=== PATIENT | male | born 1955 | race Hispanic/Latino ===

== ENCOUNTER 2022-07-14 14:53 | Observation (INO) | payer MEDICARE, SELFPAY ==
[2022-07-14] VITALS (8 sets, daily range): BP systolic 90–203; BP diastolic 52–86; PULSE 78–96; RESP 14–20; TEMP 36.4; O2SAT 98
--- NOTE | ~2022-07-14 | XR_ITS ---
EXAMINATION: XR chest 2V Exam Date/Time: 07/14/2022 15:15 BUSINESS ATTORNEY HISTORY: WEAKNESS, NAUSEA,HX HBP AND DIALYSIS PATIENT, POOR HISTORIAN Comparison: None. RESULT: Lines, tubes, and devices: None. Lungs and pleura: Minimal right posterior basal scar/atelectasis. Cardiomediastinal silhouette: Unremarkable. Other: No acute osseous or upper abdominal finding. IMPRESSION: No acute cardiopulmonary process. Reviewed, dictated and finalized at location K. NESS ATTORNEY
--- NOTE | ~2022-07-14 | CT_ITS ---
EXAMINATION: CT brain wo con DATE: 07/14/2022 19:40 INDICATION: AMS . TECHNIQUE: Computed tomography (CT) of the head was performed without intravenous contrast. The mA wa s adjusted according to patient size. Iterative reconstruction technique was employed. The dose-lengt h product was 605.33 mGy-cm. COMPARISON: None. FINDINGS: No acute intracranial hemorrhage or extra-axial fluid collection. No hydrocephalus, mass, or herniation. No acute ischemic infarct. Unremarkable dural venous sinus attenuation. No acute osseous abnormality. The aerated spaces are clear. Mild chronic white matter change. Atherosclerotic intracranial calcification. Bilateral lens replacem ents. IMPRESSION: No acute intracranial process. Reviewed, dictated and finalized at location K. ATELIC CONSULTANT
--- NOTE | 2022-07-14 14:54 | ECG_ITS ---
Measurements Intervals [place] Rate: 84 P: 33 TN: 130 QRS: 108 QRSD: 136 T: 9 QT: 401 QTc: 475 Interpretive Statements SINUS RHYTHM RIGHT AXIS DEVIATION RIGHT BUNDLE BRANCH BLOCK BASELINE ARTIFACT- I, II, AVR, AVL, AVF ABNORMAL ECG NO PREVIOUS ECG AVAILABLE FOR COMPARISON Electronically Signed On 07-14-2022 20:42:52 AUTOMATION CONTROLS ENGINEER by García Ayala D.O.
[2022-07-14 17:45] LABS: Basophils Absolute Auto 0.1 K/mm3 (0.0-0.1); Basophils Percent Auto 0.6 % (0.2-1.2); Eosinophils Absolute Auto 0.1 K/mm3 (0-0.3); Eosinophils Percent Auto 0.8 % (0-4.4); Hematocrit 37.1 % (42.0-52.0); Hemoglobin 12.2 g/dL (14.0-18.0); Immature Granulocyte Absolute 0.09 K/mm3 (0.00-0.031); Immature Granulocyte Percent A 0.8 % (0-0.5); Lymphocytes Absolute Auto 1.45 K/mm3 (0.9-3.2); Lymphocytes Percent Auto 13.4 % (18.3-44.2); Mean Corpuscular HGB Conc 32.9 g/dl (32-36); Mean Corpuscular Hemoglobin 30.3 pg (26-34); Mean Corpuscular Volume 92.3 fl (80-100); Mean Platelet Volume 9.7 fl (7.4-10.4); Monocytes Absolute Auto 1.1 K/mm3 (0.1-0.6); Monocytes Percent Auto 10.5 % (2.6-8.5); Neutrophils Percent Auto 73.9 % (45.5-73.1); Platelet Count Result 314 k/mm3 (150-375); Red Blood Count 4.02 M/mm3 (4.6-6.20); Red Cell Distribution Width 18.1 % (11.5-14.5); White Blood Count 10.9 K/mm3 (4.5-10.0)
[2022-07-14 17:49] LABS: Alanine Aminotransferase 18 U/L (6-50); Albumin Level 4.7 g/dL (3.5-5.1); Alkaline Phosphatase 81 U/L (38-126); Anion Gap 12 mmol/L (8-16); Aspartate Amino Transferase 22 U/L (17-59); Bilirubin,Total 0.7 mg/dL (0.2-1.3); Blood Urea Nitrogen 64 mg/dL (9-20); Calcium 8.9 mg/dL (8.4-10.2); Carbon Dioxide 30 mmol/L (22-30); Chloride 93 mmol/L (98-107); Estimated CRCL calculation 7 ml/min; Estimated Glomerular Filt Rate 6; Glucose 113 mg/dL (65-110); Potassium 5.1 mmol/L (3.4-5.0); Sodium 135 mmol/L (137-145)
[2022-07-14 18:54] LABS: Add Urine Microscopic? YES; Appearance Urine Clear (Clear); Bilirubin Urine Negative (Negative); Blood Urine Negative (Negative); Color Urine Yellow (Yellow); Glucose Urine UA 1+ mg/dL (Negative); Ketones Urine Trace mg/dL (Negative); Leukocyte Esterase Ur Negative LEU/UL (Negative); Nitrate Urine Negative (Negative); Protein Urine 3+ mg/dL (Negative); Specific Grav Ur 1.015 (1.001-1.035); Urobilinogen Urine 0.2 mg/dL (<2.0)
[2022-07-14 19:14] LABS: Bacteria Urine Trace /hpf; Squamous Epithelial Cell Urine Occasional /hpf (Few)
--- NOTE | 2022-07-14 19:27 | ED.GENADULT ---
HPI - General Adult General Chief complaint: Weakness Stated complaint: WEAKNESS, MISSED DIALYSIS TODAY Time Seen by Provider: 07/14/22 19:18 History of Present Illness HPI narrative: 67-year-old male presenting to the emergency department for evaluation of altered mental status. Patient states that Tuesday he was having some neck and back pain and did take some pain medication for this. Patient states that it did help with the pain but he felt tired and confused after taking the medication. Patient states that today he was still having symptoms of feeling tired and slept for most of the day. Patient did miss his hemodialysis. Patient does get hemodialysis on Tuesday and Tuesday. Dialysis is not scheduled again until Tuesday. Patient denies any chest pain or shortness of breath. Patient denies any coughs colds or fevers. Patient denies any nausea vomiting or diarrhea. Related Data Home Medications Medication Instructions Recorded Confirmed amlodipine 5 mg tablet 5 mg PO DAILY 07/15/22 07/15/22 atorvastatin 20 mg tablet 20 mg PO HS 07/15/22 07/15/22 carvedilol 12.5 mg tablet (Coreg) 12.5 mg PO BID 07/15/22 07/15/22 ergocalciferol (vitamin D2) 1,250 50,000 unit PO WEEKLY 07/15/22 07/15/22 mcg (50,000 unit) capsule sevelamer carbonate 800 mg tablet 1,600 mg PO TID 07/15/22 07/15/22 (Renvela) tramadol 50 mg tablet 50 mg 07/15/22 Allergies Allergy/AdvReac Type Severity Reaction Status Date / Time No Known Allergies Allergy Verified 07/14/22 20:50 Review of Systems Review of Systems: CONSTITUTIONAL: Denies fever, chills, or sweats. EYES: Denies visual changes, redness, or discharge. ENT: Denies rhinorrhea, congestion, sore throat, or otalgia. CARDIOVASCULAR: Denies chest pain, palpitations, or edema. RESPIRATORY: Denies cough or dyspnea. GASTROINTESTINAL: Denies abdominal pain, nausea, vomiting, or diarrhea. GENITOURINARY: Denies dysuria or hematuria. SKIN: Denies rash or itching. MUSCULOSKELETAL: See HPI NEUROLOGIC: See HPI Exam Narrative: APPEARANCE: Well appearing, no pain, no distress, well-nourished. HEAD: normocephalic, atraumatic. EYES: PERRLA/EOMI, conjunctivae clear. NOSE: Normal no drainage EARS:TMS clear with good light reflex. THROAT: Pharynx clear, no exudate. NECK: Supple. No adenopathy, no masses. RESPIRATORY: Airway patent, respirations nonlabored. Clear to auscultation bilaterally, no rales, rhonchi, wheezing. CARDIOVASCULAR: Regular rate and rhythm without murmurs rubs or gallops. ABDOMINAL: Soft, nontender, nondistended, normal bowel sounds MUSCULOSKELETAL: Moves all extremities. Strength/ROM intact, No edema, No calf tenderness. NEURO: Alert. Cranial nerves II through XII intact. Grossly intact SKIN: Warm, dry. Normal Color Course Course Emergency Course: Patient presents to the emergency department complaining of increased confusion. During my examination patient did have some confusion regarding the correct day of the week. Patient was afebrile with a minor leukocytosis of 10.9. Patient is on hemodialysis and his baseline kidney function is unknown. Patient did have a creatinine 8.8 and a BUN of 64. Patient was mildly hyperkalemic at 5.1. Patient was treated with a 500 mL normal saline bolus bicarb and Lokelma. Patient does still produce urine and UA shows no evidence of urinary tract infection. Patient's drug screen was negative. Patient was also negative for influenza RSV and for COVID. CT head scan showed no acute intracranial abnormality. No specific etiology to explain the patient's altered mental status was notified. Patient may have some metabolic encephalopathy due to uremic cephalopathy. Other etiologies on the differential diagnoses do include infectious or adverse drug reaction. Patient was discussed with the hospitalist and with nephrology. Nephrology will see the patient as consult. While being boarded in the emergency department and patient had an episode of
--- NOTE | 2022-07-14 20:16 | PC.NURSE ---
When this RN asked pt what brought him into the ER pt c/o neck and lower back pain that has been going on for a long time . After asking pt what changed to make him come into the ER pt states My neighbor says I'm not acting right . Pt states he has been staying with his neighbor while he's getting work done on his house. He goes to dialysis Mondays, Wednesdays, and Fridays but missed his treatment today because I wasn't feeling good . He is alert to self, year, month, and place, but is slow to respond and seems forgetful.
[2022-07-14 20:21] LABS: Amphetamine Screen Urine Negative (Negative); Barbiturate Screen Urine Negative (Negative); Benzodiazepines Screen Urine Negative (Negative); Cannabinoid Screen Urine Negative (Negative); Cocaine Screen Urine Negative (Negative); Methadone Screen Urine Negative (Negative); Opiate Screen Urine Negative (Negative); Phencyclidine Screen Urine Negative (Negative)
[2022-07-14 20:24] LABS: Influenza A QL RT-PCR Negative (Negative); Influenza B QL RT-PCR Negative (Negative); RSV RNA, RT-PCR Negative (Negative); SARS-CoV-2 RNA PCR Negative
[2022-07-14] MEDS: SODIUM ZIRCONIUM CYCLOSILICATE 10 GM POWD.PACK PO (20:50)
[2022-07-14] MEDS: SODIUM BICARBONATE 8.4% 50 MEQ/50 ML SYRINGE IV PUSH (20:55)
[2022-07-14] MEDS: SODIUM CHLORIDE 0.9% IV 250 ML BAG 500 ML IVPB (21:00)
--- NOTE | 2022-07-14 21:42 | PC.NURSE ---
Dr. Thompson notified of positive orthostatic vital signs. Clyde sandwich given to pt.
[2022-07-14] MEDS: hydrALAZINE HCL 20 MG/ML VIAL 10 MG IV PUSH (21:50)
--- NOTE | 2022-07-14 21:54 | PM.IMHP ---
H&P: HPI History of Present Illness Date/Time: 07/14/22 21:54 Chief Complaint: Altered mental status Narrative: This is a 67-year-old male past medical history significant for end-stage renal disease on hemodialysis, patient presents to the emergency room due to altered mental status patient states that he was not acting right his neighbor called 911 patient was brought to the emergency room for evaluation. Patient can not really give much of history is circumstantial at 1 point his states that his at [facility]. However could really detail the events that led him to be in the hospital denies any pain. Preliminary workup has been essentially nonrevealing. A chest x-ray was reported as: IMPRESSION: No acute cardiopulmonary process. A CT of the head was reported as: FINDINGS: No acute intracranial hemorrhage or extra-axial fluid collection. No hydrocephalus, mass, or herniation. No acute ischemic infarct. Unremarkable dural venous sinus attenuation. No acute osseous abnormality. The? aerated spaces are clear. Mild chronic white matter change. Atherosclerotic intracranial calcification. Bilateral lens replacements. IMPRESSION:? No acute intracranial process. Review of Systems Review of Systems: ROS unobtainable: Yes unobtainable due to mental status Meds Home Medications and Allergies Home Medications Medication Instructions Recorded Confirmed Type amlodipine 5 mg tablet 5 mg PO DAILY 07/15/22 07/15/22 History atorvastatin 20 mg tablet 20 mg PO HS 07/15/22 07/15/22 History carvedilol 12.5 mg tablet (Coreg) 12.5 mg PO BID 07/15/22 07/15/22 History ergocalciferol (vitamin D2) 1,250 50,000 unit PO WEEKLY 07/15/22 07/15/22 History mcg (50,000 unit) capsule sevelamer carbonate 800 mg tablet 1,600 mg PO TID 07/15/22 07/15/22 History (Renvela) tramadol 50 mg tablet 50 mg 07/15/22 History Allergies Allergy/AdvReac Type Severity Reaction Status Date / Time No Known Allergies Allergy Verified 07/14/22 20:50 Vital Signs Vital Signs - 24 hr 07/14/22 15:00 07/14/22 20:27 07/14/22 21:34 Temperature 97.6 F Pulse Rate 81 78 82 Respiratory Rate 16 20 Blood Pressure 175/86 H 177/75 H 203/80 H Pulse Oximetry 98 98 07/14/22 21:36 07/14/22 21:37 Temperature Pulse Rate 83 88 Respiratory Rate Blood Pressure 179/77 H 164/66 H Pulse Oximetry Exam Narrative: Patient is laying in a stretcher Const: General: comfortable, no acute distress, well developed, alert, awake and average body habitus Nutritional Appearance: average body habitus Orientation/consciousness: oriented to person HENMT: Head: normal to inspection, normocephalic and atraumatic Ears: hearing grossly normal bilaterally Face/Nose/Sinus: normal facial exam Face and sinus: normal facial exam Eyes: General: appearance normal, both eyes and all related structures Pupils: Equal, round and reactive pupils present EOM: EOMs intact bilaterally Neck: Neck: full ROM, no lymphadenopathy and no JVD Thyroid: thyroid normal Lymphatic: no lymphadenopathy noted Resp: Effort & Inspection: normal respiratory effort and able to speak in complete sentences Auscultation: clear to auscultation bilaterally Cardio: Jugular venous distension: no JVD Rate: regular rate Rhythm: regular rhythm Heart sounds: S1 normal heart sound present and S2 normal heart sound present GI: GI Palp: Yes Soft to palpation and Yes No hepatosplenomegaly present : General: Yes deferred Skin: Rashes: no rashes Wounds: no wounds Neuro: General: oriented to person and CN's II-XI intact bilaterally Cranial nerves: Yes CN's II-XII intact bilaterally and Yes Equal, round and reactive pupils present Cognition (Neuro): abnormal cognition (Confusion) Speech: normal speech Gait exam (Neuro): Unable to assess gait Motor exam (neuro): 5/5 motor strength present throughout Extrem: General: normal to inspection, full ROM, no joint enlargement and n
--- NOTE | 2022-07-14 21:55 | PC.NURSE ---
Called pt's neighbor listed in contacts to let them know pt is being admitted to the hospital. No questions or concerns at this time.
--- NOTE | 2022-07-14 23:33 | PC.NURSE ---
Hospitalist paged at this time d/t change in blood pressure
[2022-07-14] MEDS: SODIUM CHLORIDE 0.9% IV 250 ML 999 ML IV CONT (23:51)
[2022-07-15] VITALS (38 sets, daily range): BP systolic 104–195; BP diastolic 55–90; PULSE 65–93; RESP 12–21; TEMP 36–37; O2SAT 95–100; BMI 26.4
--- NOTE | 2022-07-15 00:41 | PC.NURSE ---
Entered pt's room to administer 15mg midodrine. This RN attempted to wake pt up but he was not responsive to verbal or tactile stimuli. He woke up briefly with sternal rub. Dr. Thompson called to bedside. POC glucose was 125. Dr. Mares paged to come to bedside. Pt placed in trendelenberg and blood pressure increased 137/65. 2L nasal cannula placed. Saturation 100%. Attempted to wake pt up with smelling salts without response. Dr. Thompson placed nasal trumpet to left nare and pt woke up. Pt is alert and oriented x4. Speech is clear.
[2022-07-15 00:46] LABS: Glucose Point of Care 125 mg/dl (65-105)
--- NOTE | 2022-07-15 00:46 | ECG_ITS ---
Measurements Intervals [place] Rate: 85 P: 28 [place]: 141 QRS: 106 QRSD: 149 T: 6 QT: 432 QTc: 514 Interpretive Statements SINUS RHYTHM VENTRICULAR PREMATURE COMPLEX POSSIBLE LEFT ATRIAL ENLARGEMENT RIGHT AXIS DEVIATION RIGHT BUNDLE BRANCH BLOCK ABNORMAL ECG COMPARED TO ECG 07/14/2022 17:27:44 NO SIGNIFICANT CHANGES Electronically Signed On 07-15-2022 8:00:03 LEAD SOFTWARE ARCHITECT by García Ayala D.O.
[2022-07-15 01:26] LABS: Alveolar/Arterial O2 Gradient 26.8 mmHg; Base Excess ABG 3.6 mEq/l (+/-2.0); Device ROOM AIR; Fractional Inspired Oxygen 21 %; HCO3 ABG 27.5 mEq/l (22.0-26.0); Modified Allen's Test Pass; Oxygen Content ABG 14.8 %vol (16.0-22.0); Oxyhemoglobin 93.5 % THb (90.0-100.0); PCO2 ABG 38.9 mmHg (35.0-45.0); PO2 ABG 76.3 mmHg (80.0-100.0); PO2 FiO2 Ratio Arterial Blood 3.63 %; Site Drawn RIGHT RADIAL; Total Hemoglobin 11.2 g/dL (12.0-18.0); pH ABG 7.467 (7.350-7.450)
[2022-07-15 05:21] LABS: Basophils Absolute Auto 0.1 K/mm3 (0.0-0.1); Basophils Percent Auto 0.6 % (0.2-1.2); Eosinophils Absolute Auto 0.2 K/mm3 (0-0.3); Eosinophils Percent Auto 2.7 % (0-4.4); Hematocrit 28.5 % (42.0-52.0); Hemoglobin 9.3 g/dL (14.0-18.0); Immature Granulocyte Absolute 0.04 K/mm3 (0.00-0.031); Immature Granulocyte Percent A 0.5 % (0-0.5); Lymphocytes Absolute Auto 1.75 K/mm3 (0.9-3.2); Lymphocytes Percent Auto 21.1 % (18.3-44.2); Mean Corpuscular HGB Conc 32.6 g/dl (32-36); Mean Corpuscular Hemoglobin 31.1 pg (26-34); Mean Corpuscular Volume 95.3 fl (80-100); Mean Platelet Volume 9.9 fl (7.4-10.4); Monocytes Absolute Auto 1.1 K/mm3 (0.1-0.6); Monocytes Percent Auto 13.6 % (2.6-8.5); Neutrophils Absolute Auto 5.1 K/mm3 (1.3-6.7); Neutrophils Percent Auto 61.5 % (45.5-73.1); Nucleated Red Blood Cells Perc 0.2 % (0.0-0.2); Platelet Count Result 255 k/mm3 (150-375); Red Blood Count 2.99 M/mm3 (4.6-6.20); Red Cell Distribution Width 18.1 % (11.5-14.5); White Blood Count 8.3 K/mm3 (4.5-10.0)
[2022-07-15 05:36] LABS: Albumin Level 3.5 g/dL (3.5-5.1); Anion Gap 11 mmol/L (8-16); Blood Urea Nitrogen 72 mg/dL (9-20); Calcium 7.6 mg/dL (8.4-10.2); Carbon Dioxide 30 mmol/L (22-30); Chloride 99 mmol/L (98-107); Estimated CRCL calculation 7 ml/min; Estimated Glomerular Filt Rate 6; Glucose 94 mg/dL (65-110); Phosphorus 7.1 mg/dL (2.5-4.5); Sodium 140 mmol/L (137-145)
[2022-07-15 07:23] LABS: Hepatitis B Surface Antigen Negative (Negative)
[2022-07-15] MEDS: carvediloL 12.5 MG TABLET PO ×2 (08:50→16:38)
[2022-07-15] MEDS: SEVELAMER CARBONATE 800 MG TABLET 1600 MG PO ×2 (08:51→16:36)
[2022-07-15] MEDS: HEPARIN SODIUM 5,000 UNITS/ML VIAL 5000 UNITS SUB-Q ×2 (08:51→21:26)
[2022-07-15] MEDS: amLODIPine BESYLATE 5 MG TABLET PO (08:51)
[2022-07-15 09:22] LABS: Hepatitis B Surface Anti Res Indeterminate
--- NOTE | 2022-07-15 10:54 | PC.NURSE ---
To dialysis per stretcher.
--- NOTE | 2022-07-15 13:14 | PM.CNNEP ---
Assessment and Plan Assessment and plan (1) End stage renal disease: Code(s): N18.6 - End stage renal disease Status: Chronic Assessment and Plan: missed HD yesterday so HD today next HD tomorrow or Tuesday but eventually transition back to M/W/F outpatient dialysis schedule follow electrolytes, volume status, and clearance (2) Altered mental status: Code(s): R41.82 - Altered mental status, unspecified Status: Acute Assessment and Plan: etiology not clear infection work-up in progress medication related??? patient admits to taking a lot of tramadol and baclofen for arthritis/muscle pain issues follow mentation (3) Hypertension: Code(s): I10 - Essential (primary) hypertension Status: Chronic Assessment and Plan: elevated at this time resume home medications follow trend of hemodynamics (4) Anemia: Code(s): D64.9 - Anemia, unspecified Status: Chronic Assessment and Plan: due to ESRD Epogen with HD follow trend of H/H Will continue to follow. History of Present Illness Reason for Consult Consult date: 07/15/22 Reason for consult: end stage renal disease Chief Complaint Chief complaint: Altered Mental Status,Hyperkalemia History of Present Illness Narrative: The patient is a 67-year-old male with a past medical history as outlined below who presented to [facility] Emergency room for further evaluation of altered mental status. The patient reports that earlier this week even having issues and problems with arthritis and muscle/back pain. He apparently had been taking tramadol as well as Baclofen for treatment of these issues which did help with his neck/back pain but he felt a bit confused in association with generalized weakness after taking these medications. Yesterday, he apparently felt so weak and tired that he slept for most of the day. He was due for outpatient dialysis yesterday but did not go because of his fatigue. His neighbor went to visit him yesterday and found him to be quite confused in comparison to his baseline and called 911. EMS subsequently brought the patient to [facility] Emergency room for further assessment. Workup and evaluation emergency room demonstrated the patient to be hemodynamically stable and in no acute distress. The patient's cells seems somewhat aware of the fact that he was confused and not his baseline and reiterated this to the ER physician. Subsequent workup and evaluation demonstrated labs consistent with his known history of end-stage renal disease and head CT did was unrevealing. There was some concern that perhaps his confusion may be an early sign of infection or some other pathological process being present so further testing was done and he was subsequently admitted to the hospital for further evaluation and therapy. It should be noted his potassium was mildly elevated on routine testing and he received medical management for treatment of this. Since his admission, he feels his mentation has improved but is still not back to baseline. He is currently receiving dialysis (he was seen on HD at around 12:45PM) at the time of my visit since he did not receive his outpatient treatment yesterday. Renal consultation was requested due to his end-stage renal disease. The patient normally dialyzes on a Tuesday, Tuesday, Tuesday dialysis schedule under the care of Dr. Toni Hugo at [facility]. the patient reports no issues or problems with his dialysis treatments and he is usually compliant with them in general. As already mentioned, he missed his dialysis treatment yesterday due to the fact that he was somewhat fatigued presumably from the a for mentioned medications he was taking. He is being dialyzed today and possibly dialysis either tomorrow or Tuesday and with eventual plan to transition him back to his Tuesday, Tuesday, Tuesday dialysis schedule. Curr
--- NOTE | 2022-07-15 18:10 | PM.IMPN ---
Progress Note: A&P Assessment and Plan (1) Altered mental state: Code(s): R41.82 - Altered mental status, unspecified Status: Acute Assessment and Plan: Place in observation CT of the head reviewed Sepsis workup in process 07/15/2021 interval history: chronic back pain had been taking tramadol and recently added baclofen box hinge and lock attacher suspect combination blood pain medication may have resulted and confusion, apparent baclofen was given by his neighbor, will continue tramadol PRN, patient was scheduled to have dialysis today he missed, will have dialysis tomorrow and further recommendation to follow. (2) End-stage renal disease on hemodialysis: Code(s): N18.6 - End stage renal disease; Z99.2 - Dependence on renal dialysis Status: Acute Assessment and Plan: Nephrology consult Continue dialysis Subjective Date/time seen: 07/15/22 18:10 Chief Complaint: Altered mental status Narrative: This is a 67-year-old male past medical history significant for end-stage renal disease on hemodialysis, patient presents to the emergency room due to altered mental status patient states that he was not acting right his neighbor called 911 patient was brought to the emergency room for evaluation.? Patient can not really give much of history is circumstantial at 1 point his states that his at [facility].? However could really detail the events that led him to be in the hospital denies any pain.? Preliminary workup has been essentially nonrevealing. 07/15/2021 interval history: chronic back pain had been taking tramadol and recently added baclofen box hinge and lock attacher suspect combination blood pain medication may have resulted and confusion, apparent baclofen was given by his neighbor, will continue tramadol PRN, patient was scheduled to have dialysis today he missed, will have dialysis tomorrow and further recommendation to follow. Review of Systems Review of Systems: As per HPI. ROS unobtainable: Yes unobtainable due to mental status Exam Narrative: Patient is comfortable, NAD HEENT: eyes are clear and none icteric LUNGS:CTA HEART: RR S1S2 ABD: BS+, Soft and nontender Lower extremities: no edema SKIN: nonjaundiced Neuro: grossly intact. Objective Data Vital Signs Vital Signs: Vital Signs - 24 hr 07/14/22 20:27 07/14/22 21:34 07/14/22 21:36 Temperature Pulse Rate 78 82 83 Respiratory Rate 20 Blood Pressure 177/75 H 203/80 H 179/77 H Pulse Oximetry 98 07/14/22 21:37 07/14/22 22:29 07/14/22 22:55 Temperature Pulse Rate 88 96 90 Respiratory Rate 20 20 Blood Pressure 164/66 H 162/75 H 150/67 H Pulse Oximetry 98 98 07/14/22 23:33 07/15/22 01:31 07/15/22 03:48 Temperature Pulse Rate 96 83 68 Respiratory Rate 14 21 H 14 Blood Pressure 90/52 L 167/84 H 105/55 L Pulse Oximetry 98 100 96 07/15/22 05:23 07/15/22 06:07 07/15/22 07:21 Temperature Pulse Rate 72 65 69 Respiratory Rate 14 12 12 Blood Pressure 104/57 L 106/56 L 109/58 L Pulse Oximetry 98 97 97 07/15/22 08:50 07/15/22 07:30 07/15/22 07:45 Temperature Pulse Rate 81 67 66 Respiratory Rate 12 12 Blood Pressure Pulse Oximetry 97 96 07/15/22 08:00 07/15/22 08:01 07/15/22 08:15 Temperature Pulse Rate 66 65 82 Respiratory Rate 14 12 18 Blood Pressure 123/60 Pulse Oximetry 95 97 99 07/15/22 08:30 07/15/22 08:45 07/15/22 09:00 Temperature Pulse Rate 76 77 78 Respiratory Rate 19 17 18 Blood Pressure Pulse Oximetry 07/15/22 09:01 07/15/22 09:15 07/15/22 09:30 Temperature Pulse Rate 82 78 74 Respiratory Rate 14 17 15 Blood Pressure 183/71 H Pulse Oximetry 07/15/22 09:45 07/15/22 10:54 07/15/22 11:07 Temperature 98.1 F Pulse Rate 72 81 75 Respiratory Rate 13 18 Blood Pressure 191/90 H 195/88 H Pulse Oximetry 07/15/22 11:20 07/15/22 11:40 07/15/22 12:00 Temperature Pulse Rate 74 73 71 Respiratory Rate Blood Pres
--- NOTE | 2022-07-15 18:22 | ADMGEN ---
This patient, John Jacobson, was admitted to [facility] Surg Room 324-02. Patient/family oriented to hospital policies and general routines including ID bracelet, bed and alarms, visiting hours, pain management, procedures, bathroom and other care routines, personal items, smoking policy, room service/diet, and visiting hours. Information on how to activate the Rapid Response Team has been discussed. Patient/Family are encouraged to report perceived risks to care and to ask questions if they do not understand what they are told or what they should do. Report from Alice
[2022-07-15] MEDS: ATORVASTATIN 20 MG TABLET PO (21:26)
[2022-07-15] MEDS: traMADol HCL (*CRX) 50 MG TABLET PO (21:32)
[2022-07-16] VITALS (11 sets, daily range): BP systolic 132–159; BP diastolic 64–77; PULSE 63–78; RESP 20; TEMP 36.5–36.6; O2SAT 95–98
[2022-07-16 07:23] LABS: Hematocrit 31.4 % (42.0-52.0); Hemoglobin 10.3 g/dL (14.0-18.0); Mean Corpuscular HGB Conc 32.8 g/dl (32-36); Mean Corpuscular Hemoglobin 30.5 pg (26-34); Mean Corpuscular Volume 92.9 fl (80-100); Mean Platelet Volume 9.6 fl (7.4-10.4); Platelet Count Result 265 k/mm3 (150-375); Red Blood Count 3.38 M/mm3 (4.6-6.20); Red Cell Distribution Width 18.5 % (11.5-14.5); White Blood Count 9.4 K/mm3 (4.5-10.0)
[2022-07-16 07:35] LABS: Albumin Level 3.9 g/dL (3.5-5.1); Anion Gap 7 mmol/L (8-16); Blood Urea Nitrogen 38 mg/dL (9-20); Calcium 8.5 mg/dL (8.4-10.2); Carbon Dioxide 31 mmol/L (22-30); Chloride 94 mmol/L (98-107); Estimated CRCL calculation 9 ml/min; Estimated Glomerular Filt Rate 8; Glucose 131 mg/dL (65-110); Magnesium 2.2 mg/dL (1.6-2.3); Phosphorus 5.4 mg/dL (2.5-4.5); Potassium 4.2 mmol/L (3.4-5.0); Sodium 132 mmol/L (137-145)
[2022-07-16] MEDS: carvediloL 12.5 MG TABLET PO ×2 (09:28→16:55)
[2022-07-16] MEDS: SEVELAMER CARBONATE 800 MG TABLET 1600 MG PO ×3 (09:28→16:55)
[2022-07-16] MEDS: amLODIPine BESYLATE 5 MG TABLET PO (09:28)
[2022-07-16] MEDS: HEPARIN SODIUM 5,000 UNITS/ML VIAL 5000 UNITS SUB-Q ×2 (09:28→20:39)
[2022-07-16] MEDS: traMADol HCL (*CRX) 50 MG TABLET PO ×2 (09:30→20:39)
--- NOTE | 2022-07-16 12:49 | PM.PNNEP ---
Progress Note: A&P Assessment and Plan (1) End stage renal disease: Code(s): N18.6 - End stage renal disease Status: Chronic Assessment and Plan: next HD tomorrow with eventually transition back to M/W/F outpatient dialysis schedule follow electrolytes, volume status, and clearance torri ironworker apprentice = Dr. Hugo outpatient dialysis center = [facility] (2) Altered mental status: Code(s): R41.82 - Altered mental status, unspecified Status: Acute Assessment and Plan: resolving (if not resolved) suspect baclofen to blame (long half life in ESRD patients) infection (blood/urine cultures) negative to date follow mentation (3) Hypertension: Code(s): I10 - Essential (primary) hypertension Status: Chronic Assessment and Plan: reasonable control at this time on home medications follow trend of hemodynamics (4) Anemia: Code(s): D64.9 - Anemia, unspecified Status: Chronic Assessment and Plan: due to ESRD Epogen with HD follow trend of H/H Will continue to follow. Subjective Date/time seen: 07/16/22 12:49 Overall, seems to be feeling much better; still has some pain/arthritis issues but seems controlled with tramadol; he feels his mentation is back to baseline with no further confusion. Exam Narrative: General: WD/WN male in NAD Heart: normal S1 and S2; no rub Lungs: clear to auscultation Abdomen: soft, nontender, nondistended, positive bowel sounds Extremities: no cyanosis or clubbing; no edema Skin: warm and dry Objective Data Vital Signs Vital Signs: Vital Signs Temp Pulse Resp BP Pulse Ox O2 Del Method 07/16/22 14:00 97.7 F 70 20 159/65 H 95 07/16/22 09:28 74 07/16/22 06:38 74 07/16/22 00:05 71 07/15/22 20:00 78 07/16/22 03:57 97.8 F 72 20 132/64 98 07/15/22 20:00 Room Air 07/15/22 19:59 97.1 F L 78 17 143/59 H 98 07/15/22 17:15 93 20 183/81 H 100 07/15/22 16:38 91 Intake/Output Intake/Output: Intake & Output 07/13/22 07/14/22 07/15/22/06/23 23:59 23:59 23:59 23:59 Intake Total 490 1100 Output Total 2000 0 Balance -1510 1100 Meds/Results Medications: Active Medications Generic Name Dose Route Start Last Admin Trade Name Freq PRN Reason Stop Dose Admin Amlodipine Besylate 5 mg 07/15/22 09:00 07/16/22 09:28 Amlodipine Besylate 5 Mg Tablet PO 5 mg DAILY CONRAD Administration Atorvastatin Calcium 20 mg 07/15/22 21:00 07/15/22 21:26 Atorvastatin 20 Mg Tablet PO 20 mg HS CONRAD Administration Carvedilol 12.5 mg 07/15/22 08:00 07/16/22 09:28 Carvedilol 12.5 Mg Tablet PO 12.5 mg BIDWM CONRAD Administration Ergocalciferol 50,000 units 07/15/22 09:00 Ergocalciferol 50,000 Units Capsule PO WEEKLY CONRAD Heparin Sodium (Porcine) 5,000 units 07/15/22 09:00 07/16/22 09:28 Heparin Sodium 5,000 Units/Ml Vial SUB-Q 5,000 units Q12HR CONRAD Administration Albumin Human 50 mls @ 999 mls/hr 07/15/22 07:12 Albutein IVPB 08/14/22 07:11 Q10M PRN HYPOTENSION Miscellaneous Information 0 each 07/16/22 00:01 Please Clarify When Next Vitamin D Capsule Is Due XX 08/15/22 00:00 CLARIFY CONRAD Sevelamer Carbonate 1,600 mg 07/15/22 08:00 07/16/22 13:20 Sevelamer Carbonate 800 Mg Tablet PO 1,600 mg TIDWM CONRAD Administration Tramadol HCl 50 mg 07/15/22 18:10 07/16/22 09:30 Tramadol Hcl (*Crx) 50 Mg Tablet PO 50 mg BID PRN Administration Pain Rated 4-6 Radiology Results: ITS Impressions Chest X-Ray 07/14/22 15:28 IMPRESSION: No acute cardiopulmonary process. Head CT 07/14/22 19:52 IMPRESSION: No acute intracranial process. Labs Labs: Laboratory Tests 07/16/22 07:10 07/16/22 07:10 Microbiology 07/14/22 18:27 Urine Clean Catch Urine Culture - Final 07/14/22 22:35 Blood
--- NOTE | 2022-07-16 12:49 | P.PNNP_ITS ---
Progress Note: A&P Assessment and Plan (1) End stage renal disease: Code(s): N18.6 - End stage renal disease Status: Chronic Assessment and Plan: * next HD tomorrow with eventually transition back to M/W/ outpatient dialysis schedule * follow electrolytes, volume status, and clearance * [facility] water supply technician = Dr. Hugo * outpatient dialysis center = [facility] (2) Altered mental status: Code(s): R41.82 - Altered mental status, unspecified Status: Acute Assessment and Plan: * resolving (if not resolved) * suspect baclofen to blame (long half life in ESRD patients) * infection (blood/urine cultures) negative to date * follow mentation (3) Hypertension: Code(s): I10 - Essential (primary) hypertension Status: Chronic Assessment and Plan: * reasonable control at this time * on home medications * follow trend of hemodynamics (4) Anemia: Code(s): D64.9 - Anemia, unspecified Status: Chronic Assessment and Plan: * due to ESRD * Epogen with HD * follow trend of H/H Will continue to follow. Subjective Date/time seen: 07/16/22 12:49 Overall, seems to be feeling much better; still has some pain/arthritis issues but seems controlled with tramadol; he feels his mentation is back to baseline with no further confusion. Exam Narrative: General: WD/WN male in NAD Heart: normal S1 and S2; no rub Lungs: clear to auscultation Abdomen: soft, nontender, nondistended, positive bowel sounds Extremities: no cyanosis or clubbing; no edema Skin: warm and dry Objective Data Vital Signs Vital Signs: Vital Signs Temp Pulse Resp BP Pulse Ox O2 Del Method 07/16/22 14:00 97.7 F 70 20 159/65 H 95 07/16/22 09:28 74 07/16/22 06:38 74 07/16/22 00:05 71 07/15/22 20:00 78 07/16/22 03:57 97.8 F 72 20 132/64 98 07/15/22 20:00 Room Air 07/15/22 19:59 97.1 F L 78 17 143/59 H 98 07/15/22 17:15 93 20 183/81 H 100 07/15/22 16:38 91 Intake/Output Intake/Output: Intake & Output 07/13/22 07/14/22 07/15/22 07/16/22 23:59 23:59 23:59 23:59 Intake Total 490 1100 Output Total 2000 0 Balance -1510 1100 Meds/Results Medications: Active Medications Generic Name Dose Route Start Last Admin Trade Name Venuq PRN Reason Stop Dose Admin Amlodipine Besylate 5 mg 07/15/22 09:00 07/16/22 09:28 Amlodipine Besylate 5 Mg Tablet PO 5 mg DAILY CONRAD Administration Atorvastatin Calcium 20 mg 07/15/22 21:00 07/15/22 21:26 Atorvastatin 20 Mg Tablet PO 20 mg HS CONRAD Administration Carvedilol 12.5 mg 07/15/22 08:00 07/16/22 09:28 Carvedilol 12.5 Mg Tablet PO 12.5 mg BIDWM CONRAD Administration Ergocalciferol 50,000 units 07/15/22 09:00 Ergocalciferol 50,000 Units Capsule PO WEEKLY CONRAD Heparin Sodium (Porcine) 5,000 units 07/15/22 09:00 07/16/22 09:28 Heparin Sodium 5,000 Units/Ml Vial SUB-Q 5,000 units Q12HR CONRAD Administration Albumin Human 50 mls @ 999 mls/hr 07/15/22 07:12
--- NOTE | 2022-07-16 17:32 | PM.IMPN ---
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 urine and blood culture no growth so far. (2) End-stage renal disease on hemodialysis: Code(s): N18.6 - End stage renal disease; Z99.2 - Dependence on renal dialysis Status: Acute Assessment and Plan: Nephrology consult Continue dialysis Subjective Date/time seen: 07/16/22 17:32 07/16/2021 interval history: chronic back pain had been taking tramadol and recently added baclofen juice weigher suspect combination blood pain medication may have resulted and confusion, apparent baclofen was given by his neighbor, will continue tramadol PRN, patient was scheduled to have dialysis on 07/14 he missed, Today patient had a dialysis is feeling much better back to normal, will monitor patient overnight will discharge the patient tomorrow morning. urine and blood culture no growth so far. Exam Narrative: Patient is comfortable, NAD HEENT: eyes are clear and none icteric LUNGS:CTA HEART: RR S1S2 ABD: BS+, Soft and nontender Lower extremities: no edema SKIN: nonjaundiced Neuro: grossly intact. Objective Data Vital Signs Vital Signs: Vital Signs - 24 hr 07/15/22 19:59 07/15/22 20:00 07/16/22 03:57 Temperature 97.1 F L 97.8 F Pulse Rate 78 72 Respiratory Rate 17 20 Blood Pressure 143/59 H 132/64 Pulse Oximetry 98 98 Oxygen Delivery Room Air 07/15/22 20:00 07/16/22 00:05 07/16/22 06:38 Temperature Pulse Rate 78 71 74 Respiratory Rate Blood Pressure Pulse Oximetry Oxygen Delivery 07/16/22 09:28 07/16/22 09:30 07/16/22 14:00 Temperature 97.7 F Pulse Rate 74 70 Respiratory Rate 20 Blood Pressure 159/65 H Pulse Oximetry 95 Oxygen Delivery Room Air 07/16/22 16:55 Temperature Pulse Rate 70 Respiratory Rate Blood Pressure Pulse Oximetry Oxygen Delivery Intake/Output Intake/Output: Intake & Output 07/13/22 07/14/22 07/15/22 07/16/22 23:59 23:59 23:59 23:59 Intake Total 490 1100 Output Total 2000 0 Balance -1510 1100 Meds/Results Medications: Active Medications Generic Name Dose Route Start Last Admin Trade Name Freq PRN Reason Stop Dose Admin Amlodipine Besylate 5 mg 07/15/22 09:00 07/16/22 09:28 Amlodipine Besylate 5 Mg Tablet PO 5 mg DAILY CONRAD Administration Atorvastatin Calcium 20 mg 07/15/22 21:00 07/15/22 21:26 Atorvastatin 20 Mg Tablet PO 20 mg HS CONRAD Administration Carvedilol 12.5 mg 07/15/22 08:00 07/16/22 16:55 Carvedilol 12.5 Mg Tablet PO 12.5 mg BIDWM CONRAD Administration Ergocalciferol 50,000 units 07/15/22 09:00 Ergocalciferol 50,000 Units Capsule PO WEEKLY CONRAD Heparin Sodium (Porcine) 5,000 units 07/15/22 09:00 07/16/22 09:28 Heparin Sodium 5,000 Units/Ml Vial SUB-Q 5,000 units Q12HR CONRAD Administration Albumin Human 50 mls @ 999 mls/hr 07/15/22 07:12 Albutein IVPB 08/14/22 07:11 Q10M PRN HYPOTENSION Miscellaneous Information 0 each 07/16/22 00:01 Please Clarify When Next Vitamin D Capsule Is Due XX 08/15/22 00:00 CLARIFY CONRAD Sevelamer Carbonate 1,600 mg 07/15/22 08:00 07/16/22 16:55 Sevelamer Carbonate 800 Mg Tablet PO 1,600 mg TIDWM CONRAD Administration Tramadol HCl 50 mg 07/15/22 18:10 07/16/22 09:30 Trama
[2022-07-16] MEDS: ATORVASTATIN 20 MG TABLET PO (20:40)
[2022-07-16 22:56] LABS: Glucose Point of Care 173 mg/dl (65-105)
[2022-07-17] VITALS (19 sets, daily range): BP systolic 97–196; BP diastolic 48–97; PULSE 59–69; RESP 16–20; TEMP 36–36.9; O2SAT 98
[2022-07-17 07:43] LABS: Hematocrit 34.1 % (42.0-52.0); Mean Corpuscular HGB Conc 32.3 g/dl (32-36); Mean Corpuscular Hemoglobin 31.1 pg (26-34); Mean Corpuscular Volume 96.3 fl (80-100); Mean Platelet Volume 9.9 fl (7.4-10.4); Platelet Count Result 267 k/mm3 (150-375); Red Blood Count 3.54 M/mm3 (4.6-6.20); Red Cell Distribution Width 18.4 % (11.5-14.5); White Blood Count 9.3 K/mm3 (4.5-10.0)
[2022-07-17 07:54] LABS: Anion Gap 10 mmol/L (8-16); Blood Urea Nitrogen 50 mg/dL (9-20); Calcium 8.1 mg/dL (8.4-10.2); Carbon Dioxide 29 mmol/L (22-30); Chloride 96 mmol/L (98-107); Estimated CRCL calculation 7 ml/min; Estimated Glomerular Filt Rate 6; Glucose 107 mg/dL (65-110); Magnesium 2.3 mg/dL (1.6-2.3); Phosphorus 6.5 mg/dL (2.5-4.5); Potassium 4.3 mmol/L (3.4-5.0); Sodium 135 mmol/L (137-145)
[2022-07-17] MEDS: SEVELAMER CARBONATE 800 MG TABLET 1600 MG PO (08:52)
[2022-07-17] MEDS: traMADol HCL (*CRX) 50 MG TABLET PO (08:52)
--- NOTE | 2022-07-17 09:10 | PC.NURSE ---
to dialysis via bed
--- NOTE | 2022-07-17 12:32 | P.PNNP_ITS ---
Progress Note: A&P Assessment and Plan (1) End stage renal disease: Code(s): N18.6 - End stage renal disease Status: Chronic Assessment and Plan: * HD today with transition back to M/W/F outpatient dialysis schedule next week * follow electrolytes, volume status, and clearance * primary trout farmer = Dr. Hugo * outpatient dialysis center = [facility] (2) Altered mental status: Code(s): R41.82 - Altered mental status, unspecified Status: Acute Assessment and Plan: * resolving (if not resolved) * suspect baclofen to blame (long half life in ESRD patients) * infection (blood/urine cultures) work-up negative to date * follow mentation (3) Hypertension: Code(s): I10 - Essential (primary) hypertension Status: Chronic Assessment and Plan: * reasonable control at this time * on home medications * follow trend of hemodynamics (4) Anemia: Code(s): D64.9 - Anemia, unspecified Status: Chronic Assessment and Plan: * due to ESRD * Epogen with HD * follow trend of H/H Will continue to follow - not opposed to discharge if otherwise medically stable. Subjective Date/time seen: 07/17/22 12:32 Tolerating dialysis treatment at the time of my visit (seen on HD at 12:20PM); feels reasonably well with no acute issues or problems to report; confusion/altered mental status seems to have resolved and he appears back to baseline; no other acute issues/events voiced currently. Exam Narrative: General: WD/WN male in NAD Heart: normal S1 and S2; no rub Lungs: clear to auscultation Abdomen: soft, nontender, nondistended, positive bowel sounds Extremities: no cyanosis or clubbing; no edema Skin: warm and intact Objective Data Vital Signs Vital Signs: Vital Signs Temp Pulse Resp BP Pulse Ox O2 Del Method 07/17/22 12:30 61 105/55 L 07/17/22 12:20 61 105/54 L 07/17/22 12:00 61 117/62 07/17/22 11:40 62 118/60 07/17/22 11:20 61 118/61 07/17/22 12:00 62 07/17/22 08:00 60 07/17/22 08:00 Room Air 07/17/22 11:00 65 141/74 H 07/17/22 10:40 65 132/71 07/17/22 10:20 65 145/73 H 07/17/22 10:00 63 139/72 07/17/22 09:39 65 181/83 H 07/17/22 09:21 98.5 F 69 16 196/97 H 07/17/22 05:23 98 F 69 20 179/72 H 98 07/17/22 04:00 59 L 07/17/22 00:00 64 07/16/22 20:00 66 07/16/22 20:00 Room Air 07/16/22 21:31 98 F 78 20 150/77 H 96 07/16/22 16:00 77 07/16/22 16:55 70 Intake/Output Intake/Output: Intake & Output 07/14/22 07/15/22 07/16/22 07/17/22 23:59 23:59 23:59 23:59 Intake Total 490 1460 320 Output Total 2000 0 2700 Balance -1510 1460 -2380 Meds/Results Medications: Active Medications Generic Name Dose Route Start Last Admin Trade Name Alex PRN Reason Stop Dose Admin Amlodipine Besylate 5 mg 07/15/22 09:00 07/17/22 14:47 Amlodipine Besylate 5 Mg Tablet PO Not Given DAILY CONRAD Atorvastatin Calcium 20 mg 07/15/22 21:00
--- NOTE | 2022-07-17 12:32 | PM.PNNEP ---
Progress Note: A&P Assessment and Plan (1) End stage renal disease: Code(s): N18.6 - End stage renal disease Status: Chronic Assessment and Plan: HD today with transition back to M/W/F outpatient dialysis schedule next week follow electrolytes, volume status, and clearance primary brake assembler = Dr. Hugo outpatient dialysis center = [facility] (2) Altered mental status: Code(s): R41.82 - Altered mental status, unspecified Status: Acute Assessment and Plan: resolving (if not resolved) suspect baclofen to blame (long half life in ESRD patients) infection (blood/urine cultures) work-up negative to date follow mentation (3) Hypertension: Code(s): I10 - Essential (primary) hypertension Status: Chronic Assessment and Plan: reasonable control at this time on home medications follow trend of hemodynamics (4) Anemia: Code(s): D64.9 - Anemia, unspecified Status: Chronic Assessment and Plan: due to ESRD Epogen with HD follow trend of H/H Will continue to follow - not opposed to discharge if otherwise medically stable. Subjective Date/time seen: 07/17/22 12:32 Tolerating dialysis treatment at the time of my visit (seen on HD at 12:20PM); feels reasonably well with no acute issues or problems to report; confusion/altered mental status seems to have resolved and he appears back to baseline; no other acute issues/events voiced currently. Exam Narrative: General: WD/WN male in NAD Heart: normal S1 and S2; no rub Lungs: clear to auscultation Abdomen: soft, nontender, nondistended, positive bowel sounds Extremities: no cyanosis or clubbing; no edema Skin: warm and intact Objective Data Vital Signs Vital Signs: Vital Signs Temp Pulse Resp BP Pulse Ox O2 Del Method 07/17/22 12:30 61 105/55 L 07/17/22 12:20 61 105/54 L 07/17/22 12:00 61 117/62 07/17/22 11:40 62 118/60 07/17/22 11:20 61 118/61 07/17/22 12:00 62 07/17/22 08:00 60 07/17/22 08:00 Room Air 07/17/22 11:00 65 141/74 H 07/17/22 10:40 65 132/71 07/17/22 10:20 65 145/73 H 07/17/22 10:00 63 139/72 07/17/22 09:39 65 181/83 H 07/17/22 09:21 98.5 F 69 16 196/97 H 07/17/22 05:23 98 F 69 20 179/72 H 98 07/17/22 04:00 59 L 07/17/22 00:00 64 07/16/22 20:00 66 07/16/22 20:00 Room Air 07/16/22 21:31 98 F 78 20 150/77 H 96 07/16/22 16:00 77 07/16/22 16:55 70 Intake/Output Intake/Output: Intake & Output 07/14/22 07/15/22 07/16/22 07/17/22 23:59 23:59 23:59 23:59 Intake Total 490 1460 320 Output Total 2000 0 2700 Balance -1510 1460 -2380 Meds/Results Medications: Active Medications Generic Name Dose Route Start Last Admin Trade Name Alex PRN Reason Stop Dose Admin Amlodipine Besylate 5 mg 07/15/22 09:00 07/17/22 14:47 Amlodipine Besylate 5 Mg Tablet PO Not Given DAILY [facility] Atorvastatin Calcium 20 mg 07/15/22 21:00 07/16/22 20:40 Atorvastatin 20 Mg Tablet PO 20 mg HS CONRAD Administration Carvedilol 12.5 mg 07/15/22 08:00 07/16/22 16:55 Carvedilol 12.5 Mg Tablet PO 12.5 mg BIDWM CONRAD Administration Ergocalciferol 50,000 units 07/15/22 09:00 Ergocalciferol 50,000 Units Capsule PO WEEKLY CONRAD Heparin Sodium (Porcine) 5,000 units 07/15/22 09:00 07/16/22 20:39 Heparin Sodium 5,000 Units/Ml Vial SUB-Q 5,000 units Q12HR CONRAD Administration Albumin Human 50 mls @ 999 mls/hr 07/15/22 07:12 Albutein IVPB 08/14/22 07:11 Q10M PRN HYPOTENSION Miscellaneous Information 0 each 07/16/22 00:01 Please Clarify When Next Vitamin D Capsule Is Due XX 08/15/22 00:00 CLARIFY CONRAD Sevelamer Carbonate 1,600 mg 07/15/22 08:00 07/17/22 14:48 Sevelamer Carbonate 800 Mg Tablet PO Not Given TIDWM CONRAD Tramadol HCl 50 m
--- NOTE | 2022-07-17 12:42 | PM.DS ---
DS: Admitting Diagnosis Discharge Date 07/17/2022 Admitting Diagnosis Altered mental status DS: Discharge Diagnosis Discharge Diagnosis (1) Altered mental state: Code(s): R41.82 - Altered mental status, unspecified Status: Acute Assessment and Plan: Place in observation CT of the head reviewed Sepsis workup in process 07/16/2021 interval history: chronic back pain had been taking tramadol and recently added baclofen trouble clerk suspect combination blood pain medication may have resulted and confusion, apparent baclofen was given by his neighbor, will continue tramadol PRN, patient was scheduled to have dialysis on 07/14 he missed, Today patient had a dialysis is feeling much better back to normal, will monitor patient overnight will discharge the patient tomorrow morning. urine and blood culture no growth so far. (2) End-stage renal disease on hemodialysis: Code(s): N18.6 - End stage renal disease; Z99.2 - Dependence on renal dialysis Status: Acute Assessment and Plan: Nephrology consult Continue dialysis DS: Summary Hospital Course Reason for hospitalization: Chief Complaint: Altered mental status Narrative: This is a 67-year-old male past medical history significant for end-stage renal disease on hemodialysis, patient presents to the emergency room due to altered mental status patient states that he was not acting right his neighbor called 911 patient was brought to the emergency room for evaluation.? Patient can not really give much of history is circumstantial at 1 point his states that his at [facility].? However could really detail the events that led him to be in the hospital denies any pain.? Preliminary workup has been essentially nonrevealing. Hospital Course: chronic back pain had been taking tramadol and recently added baclofen trouble clerk suspect combination pain medication may have resulted and confusion, apparent baclofen was given by?his neighbor,? will continue tramadol PRN,? patient was scheduled to have dialysis on 07/14 he missed, Today patient had a dialysis is feeling much better back to normal, will monitor patient overnight will discharge the patient tomorrow morning.? urine and blood culture no growth so far. discussed with trouble clerk patient will have dialysis today and can be discharged afterward. Time Spent with Patient Time attestation: Total time spent providing and/or coordinating discharge services: Exam Narrative: Patient is comfortable, NAD HEENT: eyes are clear and none icteric LUNGS:CTA HEART: RR S1S2 ABD: BS+, Soft and nontender Lower extremities: no edema SKIN: nonjaundiced Neuro: grossly intact. DS: Data Data Completed and Pending Labs on day of discharge: Labs from last 24 hours 07/17/22 07/17/22 07/16/22 07:03 07:03 20:44 WBC 9.3 RBC 3.54 L Hgb 11.0 L Hct 34.1 L MCV 96.3 MCH 31.1 MCHC 32.3 RDW 18.4 H Plt Count 267 MPV 9.9 Sodium 135 L Potassium 4.3 Chloride 96 L Carbon Dioxide 29 Anion Gap 10 BUN 50 H D Creatinine 8.90 H Estim Creat Clear Calc 7 Estimated GFR 6 L Glucose 107 POC Capillary Glucose 173 H Calcium 8.1 L Phosphorus 6.5 H Magnesium 2.3 Albumin 4.0 Preliminary micro results at discharge 07/14/22 22:35 Blood Culture - Preliminary Blood 07/14/22 22:35 Blood Culture - Preliminary Blood Discharge Plan Discharge Attending physician on discharge: Barbara Juares Consulting providers: Gabi Hudson ; García Ayala ; Sotero Byrnes Discharging Clinician: Barbara Juares Patient Disposition: Home, Self-Care Activity: as tolerated Diet: renal and low sodium Discharge Instructions: patient to follow-up with his trouble clerk for scheduled dialysis, and to follow-up with his primary care provider as soon as possible, patient instructed if any symptoms worsen to go to nearest emergency
--- NOTE | 2022-07-17 13:40 | PC.NURSE ---
pt returned from dialysis via bed, sandwich ordered for pt, resting comfortably
== END 2022-07-17 16:08 | disposition home or self-care (01) ==
LOC: ANHED 22:13 → ANHIMU 07-15 07:29 → ANH3MEDSUR 07-15 17:43 → ANHIMU 07-19 13:54
PROVIDERS: Emergency Medicine; Internal Medicine Nephrology; Admitting Provider Internal Medicine; Emergency Provider Emergency Medicine; PCP Internal Medicine; Visit Provider Family Medicine
DX: R41.82 Altered mental status, unspecified (principal); I12.0 Hypertensive chronic kidney disease with stage 5 chronic kidney disease or end stage renal disease; N18.6 End stage renal disease; D63.1 Anemia in chronic kidney disease; Z99.2 Dependence on renal dialysis; E87.5 Hyperkalemia; D72.829 Elevated white blood cell count, unspecified; I45.10 Unspecified right bundle-branch block; R94.31 Abnormal electrocardiogram [ECG] [EKG]; Z20.822 Contact with and (suspected) exposure to COVID-19; R53.1 Weakness; E78.5 Hyperlipidemia, unspecified; R53.83 Other fatigue; M54.2 Cervicalgia; G89.29 Other chronic pain; M54.9 Dorsalgia, unspecified; M19.90 Unspecified osteoarthritis, unspecified site; Z79.891 Long term (current) use of opiate analgesic; Z79.899 Other long term (current) drug therapy; Z82.49 Family history of ischemic heart disease and other diseases of the circulatory system
CPT/HCPCS: 36415; 36600; 70450; 71046; 80053; 80069; 80307; 81001; 82805; 82948; 83735; 85025; 85027; 86706; 87040; 87086; 87340; 87637; 93005; 96372; 96374; 96375; 99285; A9270; G0257; G0378; J0360; J1644; J2310; J7030; J7040; J7050